=== PATIENT | female | born 1975 | race Hispanic/Latino ===

== ENCOUNTER 2021-12-11 00:24 | Emergency (ER) | payer OTHER ==
[~2021-12-11] VITALS: Ht 167.6 cm; Wt 99.8 kg
[~2021-12-11 00:24] MED LIST: ADVAIR HFA 230-12 GM; ALBUTEROL2.5 MG/3 M INH; BENTYL10 MG PO; BENTYL20 MG PO; CARAFATE1 GM PO; CARAFATE1 GM/10 ML PO; CIPRO500 MG PO; CYCLOBENZAPRINE10 MG PO; DEXILANT60 MG PO; HYDROXYZINE PAM25 MG PO; IBUPROFEN600 MG PO; KETOROLAC TROME10 MG; LINZESS; LITHOBID300 MG PO; MOBIC7.5 MG PO; NEURONTIN400 MG PO; OLANZAPINE5 MG PO; PANTOPRAZOLE SO40 MG PO; REGLAN5 MG PO; SERTRALINE HCL100 MG PO; SOMA350 MG PO; SUMATRIPTAN SUC25 MG PO; TOPIRAMATE25 MG PO; ULTRAM 50MG50 MG PO; ULTRAM50 MG PO; ZOFRAN4 MG PO; [UNRECOGNIZED DRUG - OTHER]
[2021-12-11] MEDS ORDERED: SODIUM CHLORIDE 0.9% 1000ML 1,000 ML IV STA (00:36)
[2021-12-11] MEDS ORDERED: ONDANSETRON HCL INJ 2MG/ML 2ML 2 MG/ML VIAL IV STA (00:36)
[2021-12-11 01:05] LABS: AMPHETAMINES SCREEN,URINE NEGATIVE (NEGATIVE); BENZODIAZEPINES SCREEN,URINE NEGATIVE (NEGATIVE); PHENCYCLIDINE SCREEN,URINE NEGATIVE (NEGATIVE)
[2021-12-11 01:09] LABS: CLARITY,URINE SL CLOUDY (CLEAR); COLOR,URINE YELLOW (YELLOW); KETONES,URINE NEGATIVE (NEGATIVE); LEUKOCYTE ESTERASE ,URINE NEGATIVE (NEGATIVE); NITRITE,URINE NEGATIVE (NEGATIVE); PROTEIN,URINE DIPSTICK NEGATIVE (NEGATIVE)
[2021-12-11 01:10] LABS: URINE UROBILINOGEN 0.2 mg/dL (0.2 - 1)
[2021-12-11 01:15] LABS: BASOPHILS % 0.4 % (0.0-1.0); EOSINOPHILS # (AUTO) 0.2 (0.0-0.4); EOSINOPHILS % 1.9 % (0.0-6.0); HEMATOCRIT 41.7 % (34.2-44.1); HEMOGLOBIN 13.5 g/dL (12.0-16.0); LYMPHOCYTES # (AUTO) 2.3 (1.0-3.2); LYMPHOCYTES % 23.6 % (18.0-39.1); MEAN CORPUSCULAR HEMOGLOBIN 29.9 pg (28-32); MEAN CORPUSCULAR HGB CONC 32.4 g/dL (31-35); MEAN CORPUSCULAR VOLUME 92.3 fL (81-99); MONOCYTES # (AUTO) 0.5 (0.2-0.8); MONOCYTES % 4.8 % (4.4-11.3); NEUTROPHILS # (AUTO) 6.7 (2.1-6.9); NEUTROPHILS % 69.1 % (38.7-80.0); PLATELET COUNT 379 x10e3/uL (140-360); RED BLOOD COUNT 4.52 x10e6/uL (3.6-5.1); RED CELL DISTRIBUTION WIDTH 13.3 % (11.7-14.4)
[2021-12-11 01:19] LABS: ALBUMIN 3.6 g/dL (3.5-5.0); ANION GAP 13.4 mmol/L (8-16); CALCIUM 8.9 mg/dL (8.4-10.2); CREATININE, SERUM 0.82 mg/dL (0.57-1.11); POTASSIUM 4.4 mmol/L (3.5-5.1)
[2021-12-11] MEDS ORDERED: FENTANYL CITRATE/PF 100MCG/2 ML INJ IV STA (01:27)
[2021-12-11 01:28] LABS: BACTERIA,URINE MANY /HPF
[2021-12-11 01:29] LABS: EPITHELIAL CELLS,URINE MANY /LPF; MUCUS,URINE MANY (RARE)
[2021-12-11] MEDS ORDERED: IOPAMIDOL 370 MG/ML 100 ML INFUS..BTL INJ ONE (01:54)
[2021-12-11] MEDS ORDERED: ONDANSETRON ODT4 MG PO (02:34)
[2021-12-11] MEDS ORDERED: ULTRAM50 MG PO (02:34)
[2021-12-11] MEDS ORDERED: CIPRO500 MG PO (02:36)
[2021-12-11 02:50] VITALS: BP 122/55
[2021-12-15] MEDS ORDERED: SPIRONOLACTONE25 MG PO (15:38)
[2021-12-15] MEDS ORDERED: METHOCARBAMOL750 MG PO (15:39)
[2021-12-15] MEDS ORDERED: LEVOTHYROXINE50 MCG PO (15:39)
[2021-12-15] MEDS ORDERED: LIALDA1.2 GM PO (15:40)
[2021-12-15] MEDS ORDERED: TORSEMIDE10 MG PO (15:40)
[2021-12-15] MEDS ORDERED: LIOTHYRONINE SO5 MCG PO (15:41)
[2021-12-15] MEDS ORDERED: MEDROL4 MG PO (15:41)
[2021-12-15] MEDS ORDERED: BENZTROPINE MESY2 MG PO (15:41)
[2021-12-15] MEDS ORDERED: OZEMPIC0.25 MG/0. SC (15:42)
[2021-12-15] MEDS ORDERED: PHENERGAN PO (15:43)
[2021-12-15] MEDS ORDERED: BENTYL PO (15:44)
== END 2021-12-11 02:40 | disposition home or self-care (01) ==
LOC: ER 00:30
DX: N39.0 Urinary tract infection, site not specified (principal); R10.32 Left lower quadrant pain; Z85.3 Personal history of malignant neoplasm of breast; Z92.21 Personal history of antineoplastic chemotherapy; E66.9 Obesity, unspecified; Z90.49 Acquired absence of other specified parts of digestive tract; Z68.35 Body mass index [BMI] 35.0-35.9, adult; Z88.6 Allergy status to analgesic agent; Z88.5 Allergy status to narcotic agent; Z88.0 Allergy status to penicillin; Z88.2 Allergy status to sulfonamides; Z88.8 Allergy status to other drugs, medicaments and biological substances; Z20.822 Contact with and (suspected) exposure to COVID-19
CPT/HCPCS: 36415; 74177; 80053; 80307; 81001; 81025; 83690; 85025; 99284; J2405; J3010; J7030; Q9967; U0002

== ENCOUNTER → 2021-12-17 | Day surgery (SDC) | payer OTHER ==
[~2021-12-17] MED LIST changes: +BENTYL PO; +BENZTROPINE MESY2 MG PO; +FENTANYL CITRATE/PF 100MCG/2 ML INJ ONE; +HYOSCYAMINE SULFATE 0.5 MG/ML INJ ONE; +LEVOTHYROXINE50 MCG PO; +LIALDA1.2 GM PO; +LIDOCAINE HCL 2% LOCAL INJ 5 ML SDV VIAL INJ ONE; +LIOTHYRONINE SO5 MCG PO; +MEDROL4 MG PO; +METHOCARBAMOL750 MG PO; +METOCLOPRAMIDE HCL 10 MG/2ML VIAL ONE; +MIDAZOLAM HCL 2 MG/2 ML VIAL ONE; +ONDANSETRON ODT4 MG PO; +OZEMPIC0.25 MG/0. SC; +PHENERGAN PO; +POVIDONE IODINE 0.05% 0.05 % ML PO ONE; +PROPOFOL IV EMULSION 10 MG/ML 20 ML VIAL ONE; +SPIRONOLACTONE25 MG PO; +TORSEMIDE10 MG PO
[2021-12-17 13:40] VITALS: BP 121/68
== END | disposition home or self-care (01) ==
LOC: OR 10:29
PROVIDERS: ATTEND Internal Medicine Gastroenterology
DX: K52.9 Noninfective gastroenteritis and colitis, unspecified (principal); K63.5 Polyp of colon; K29.70 Gastritis, unspecified, without bleeding; K20.90 Esophagitis, unspecified without bleeding; K29.80 Duodenitis without bleeding; K21.9 Gastro-esophageal reflux disease without esophagitis; K28.9 Gastrojejunal ulcer, unspecified as acute or chronic, without hemorrhage or perforation; K64.8 Other hemorrhoids; Z71.3 Dietary counseling and surveillance; G47.33 Obstructive sleep apnea (adult) (pediatric); J45.909 Unspecified asthma, uncomplicated; E27.8 Other specified disorders of adrenal gland; N39.0 Urinary tract infection, site not specified; I25.10 Atherosclerotic heart disease of native coronary artery without angina pectoris; I45.10 Unspecified right bundle-branch block; E03.9 Hypothyroidism, unspecified; M06.9 Rheumatoid arthritis, unspecified; M19.90 Unspecified osteoarthritis, unspecified site; G43.909 Migraine, unspecified, not intractable, without status migrainosus; F31.9 Bipolar disorder, unspecified; F17.210 Nicotine dependence, cigarettes, uncomplicated; Z88.6 Allergy status to analgesic agent; Z88.0 Allergy status to penicillin; Z88.2 Allergy status to sulfonamides; Z01.812 Encounter for preprocedural laboratory examination; Z20.822 Contact with and (suspected) exposure to COVID-19; Z79.899 Other long term (current) drug therapy; Z68.36 Body mass index [BMI] 36.0-36.9, adult; Z85.3 Personal history of malignant neoplasm of breast; Z86.73 Personal history of transient ischemic attack (TIA), and cerebral infarction without residual deficits; Z80.0 Family history of malignant neoplasm of digestive organs
CPT/HCPCS: 0223U; 36415 ×2; 43239; 45380; 84702; C9113; J1980; J2001; J2250; J2704; J2765; J3010

== ENCOUNTER → 2022-01-03 | Day surgery (SDC) | payer OTHER ==
[~2022-01-03] MED LIST changes: -HYOSCYAMINE SULFATE 0.5 MG/ML INJ ONE; -METOCLOPRAMIDE HCL 10 MG/2ML VIAL ONE
[2022-01-03 14:00] VITALS: BP 113/70
== END | disposition home or self-care (01) ==
LOC: OR 12:30
PROVIDERS: ATTEND Internal Medicine Gastroenterology
DX: K29.70 Gastritis, unspecified, without bleeding (principal); K31.89 Other diseases of stomach and duodenum; K21.9 Gastro-esophageal reflux disease without esophagitis; Z71.3 Dietary counseling and surveillance; Z86.010 Personal history of colon polyps; E27.8 Other specified disorders of adrenal gland; J45.909 Unspecified asthma, uncomplicated; G35 Multiple sclerosis; F32.A Depression, unspecified; R60.0 Localized edema; N28.89 Other specified disorders of kidney and ureter; F17.210 Nicotine dependence, cigarettes, uncomplicated; Z88.6 Allergy status to analgesic agent; Z88.0 Allergy status to penicillin; Z88.2 Allergy status to sulfonamides; Z01.812 Encounter for preprocedural laboratory examination; Z20.822 Contact with and (suspected) exposure to COVID-19; Z68.37 Body mass index [BMI] 37.0-37.9, adult; Z85.3 Personal history of malignant neoplasm of breast; Z80.0 Family history of malignant neoplasm of digestive organs
CPT/HCPCS: 0223U; 36415; 43239; 81025; J2001; J2250; J2704; J3010

== ENCOUNTER → 2022-01-23 | Outpatient (CLI) | payer OTHER ==
[~2022-01-23] MED LIST changes: +ACETAMINOPHEN 325 MG TAB ONE; -FENTANYL CITRATE/PF 100MCG/2 ML INJ ONE; +LIDOCAINE HCL 1% LOCAL INJ 20 ML VIAL ONE; -LIDOCAINE HCL 2% LOCAL INJ 5 ML SDV VIAL INJ ONE; -MIDAZOLAM HCL 2 MG/2 ML VIAL ONE; -POVIDONE IODINE 0.05% 0.05 % ML PO ONE; -PROPOFOL IV EMULSION 10 MG/ML 20 ML VIAL ONE
[2022-01-23 09:26] LABS: HEMOGLOBIN 12.8 g/dL (12.0-16.0)
[2022-01-23 09:40] LABS: INR 0.84; PROTHROMBIN TIME 12.3 seconds (11.9-14.5)
[2022-01-23 09:41] LABS: PARTIAL THROMBOPLASTIN TIME 28.7 seconds (23.8-35.5)
[2022-01-23 12:05] LABS: APPEARANCE,CSF CLEAR (CLEAR); COLOR,CSF COLORLESS (COLORLESS); TUBE NUMBER 3; WHITE BLOOD CELL,CSF 1 cells/uL (0-5)
[2022-01-23 13:42] LABS: HIV 1&2 AB SCREEN NON-REACTIVE (NONREACTIVE)
[2022-01-25 14:11] LABS: IGG/ALB RATIO CSF 0.14 (0.00-0.25)
[2022-01-25 14:21] LABS: CSF/SERUM ALBUMIN INDEX 3 (0-8); MYELIN BASIC PROTEIN, CSF 3.1 ng/mL (0.0-3.7)
== END ==
LOC: DX 08:52
PROVIDERS: ATTEND Psychiatry & Neurology Clinical Neurophysiology
DX: G35 Multiple sclerosis (principal)
CPT/HCPCS: 36415; 62328; 82040; 82306; 82784; 82945; 83520; 83873; 83916; 84157; 85014; 85049; 85610; 85730; 86592; 86706; 87070; 87205; 87390; 87798 ×3; 89051; G0433; G0435; J2001

== ENCOUNTER → 2023-12-07 | Day surgery (SDC) | payer OTHER ==
[~2023-12-07] MED LIST changes: -ACETAMINOPHEN 325 MG TAB ONE; +COLESTIPOL HCL1 GM PO; +DICYCLOMINE HCL20 MG PO; -LIDOCAINE HCL 1% LOCAL INJ 20 ML VIAL ONE; +LIDOCAINE HCL 2% LOCAL INJ 5 ML SDV VIAL INJ ONE; +MIDAZOLAM HCL 2 MG/2 ML VIAL ONE; +ONDANSETRON HCL INJ 2MG/ML 2ML 2 MG/ML VIAL ONE; +PROPOFOL IV EMULSION 10 MG/ML 50 ML VIAL IV ONE; +TYLENOL325 MG PO
[2023-12-07] MEDS: ONDANSETRON HCL INJ 2MG/ML 2ML 2 MG/ML VIAL ONE (17:35)
[2023-12-07 17:50] VITALS: BP 101/53; PULSE 65; RESP 17; TEMP 98.3; O2SAT 97
[2023-12-07 18:30] LABS: WBC,FECAL (FECAL LACTOFERRIN) NEGATIVE (NEGATIVE)
[2023-12-11 08:15] LABS: ENDOMYSIAL ANTIBODIES, IGA Negative (Negative)
[2023-12-11 09:52] LABS: IMMUNOGLOBULIN A 192 mg/dL (87-352); TISSUE TRANSGLUTAMINASE IGA AB <2 U/mL (0-3)
== END | disposition home or self-care (01) ==
LOC: OR 14:17
PROVIDERS: ATTEND Internal Medicine Gastroenterology
DX: K29.70 Gastritis, unspecified, without bleeding (principal); D12.3 Benign neoplasm of transverse colon; K52.9 Noninfective gastroenteritis and colitis, unspecified; K20.90 Esophagitis, unspecified without bleeding; K62.89 Other specified diseases of anus and rectum; K21.9 Gastro-esophageal reflux disease without esophagitis; K64.8 Other hemorrhoids; Z71.3 Dietary counseling and surveillance; G35 Multiple sclerosis; J45.909 Unspecified asthma, uncomplicated; N39.0 Urinary tract infection, site not specified; Z71.89 Other specified counseling; F41.9 Anxiety disorder, unspecified; F32.A Depression, unspecified; F17.290 Nicotine dependence, other tobacco product, uncomplicated; Z88.6 Allergy status to analgesic agent; Z88.1 Allergy status to other antibiotic agents; Z88.0 Allergy status to penicillin; Z88.2 Allergy status to sulfonamides; Z88.8 Allergy status to other drugs, medicaments and biological substances; Z79.899 Other long term (current) drug therapy; Z68.38 Body mass index [BMI] 38.0-38.9, adult; Z85.3 Personal history of malignant neoplasm of breast; Z80.0 Family history of malignant neoplasm of digestive organs
CPT/HCPCS: 43239; 45380; 45385; 81025; 82784; 83516; 83630; 83993; 86140; 86256; 87045; 87177; 87324; 87328; 87449; C9113; J2001; J2250; J2405; J2704